=== PATIENT | female | born 1950 | race American Indian/Alaskan Native ===

== ENCOUNTER 2016-11-26 09:25 | Day surgery (SDC) | payer MEDICARE ==
[2016-11-26] MEDS ORDERED: ANGIOMAX IV ONE (12:24)
[2016-11-26] MEDS ORDERED: NACL 0.9% 100 ML ONE (12:24)
[2016-11-26] MEDS ORDERED: XYLOCAINE 2% INFILTRATI ONE (12:24)
[2016-11-26] MEDS ORDERED: WATER FOR INJ (PF) 0 ML ONE (12:24)
[2016-11-26] MEDS ORDERED: NACL 0.9% 250ML 250 ML ONE (12:24)
[2016-11-26] MEDS ORDERED: NACL 0.9% 500 ML 500 ML ONE (12:34)
[2016-11-26] MEDS: VERSED ONE ×2 (12:40→12:50)
[2016-11-26] MEDS: SUBLIMAZE ONE ×2 (12:40→12:50)
--- NOTE | 2016-11-26 13:03 | Post Operative Note ---
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
[2016-11-26 14:37] VITALS: BP 156/67
--- NOTE | 2016-12-12 09:01 | Operative Report ---
Operative Report Operative Report: preoperative diagnosis: Stenosis left AV fistula Postoperative diagnosis: Same Procedure performed: Introduction of catheter into AV fistula Arteriovenous fistulogram [employer] left AV fistula venous Central venogram Radiologic supervision and interpret Surgeon:Stewart Street MD Assistants: None Anesthesia: Conscious sedation Complications: None Specimen: None Estimated blood loss: Minimal Procedure in detail: The patient was brought into cardiac catheterization suite. She was placed supineon the table with the left arm extend The correct patient and the correct procedure as well as site for surgery was identified. The left upper extremity was prepped with a ChloraPrepand draped sterilely. One percent lidocaine was instilled at the arterial end of the fistula. A micropuncture needle was used to access the fistula. A 6 Irish sheath was placed. A fistulogram was then completed through the sheath. A 90% stenosis of the venous outflow was noted. No central venous stenosis was identified. An 8 mm x 4 cm [place] [employer]RI[employer] RELATIONS DIRECTOR balloon was used to angioplasty the venous outflow tract stenosis. A post intervention fistulogram revealed no residual stenosis. The sheath was removed and the access site was closed. The patient tolerated the procedure. Disposition: Home
== END 2016-11-26 14:30 | disposition home or self-care (01) ==
LOC: CATH 09:25 → OPU 09:25
PROVIDERS: ATTEND Surgery Vascular Surgery
DX: T82.858A Stenosis of other vascular prosthetic devices, implants and grafts, initial encounter (principal); Y83.2 Surgical operation with anastomosis, bypass or graft as the cause of abnormal reaction of the patient, or of later complication, without mention of misadventure at the time of the procedure
CPT/HCPCS: 36415; 36902; 84132; C1725; C1751; C1769; C1894; J2250; J3010; J7040; J7050; J0583; Q9967